=== PATIENT | male | born 1990 | race Caucasian/White ===

== ENCOUNTER 2022-08-13 11:07 | Outpatient (REF) | payer OTHER, SELFPAY ==
--- NOTE | ~2022-08-13 | US_ITS ---
Examination is included in a single combined report with ultrasound scrotum under accession number [id number].
--- NOTE | ~2022-08-13 | US_ITS ---
EXAMINATION: US SCROTUM CLINICAL INFORMATION: 32-year-old with testicular mass/swelling. COMPARISON: None TECHNIQUE: A sonogram of the scrotum was performed assessing bobo-scale appearance and color Doppler flow. Spectral Doppler analysis of the arterial and venous flow were performed in the testes bilaterally. FINDINGS: RIGHT: Right testicle measures 4.7 x 2.6 x 3.7 cm, volume 24 mL. There is a malignant appearing multifocal heterogeneous hypoechoic intratesticular mass with ill-defined margins and some associated coarse calcification. Overall combined dimensions are approximately 3.6 x 2.1 x 3.4 cm. There is increased vascularity in the right testis. No torsion. The epididymal head appears full and heterogeneous, possibly involved with tumor. No hydrocele. LEFT: Left testicle measures 4.2 x 2.0 x 3.5 cm, volume 15 mL. Left testis appears normal. The parenchyma is homogeneous and there is no intratesticular mass. Normal color and pulse Doppler flow. No torsion. No hydrocele. Epididymal head unremarkable. Urology consult recommended. Results communicated to Dr. Faith via secure text on 08/13/2022. US/US scrotum IMPRESSION: Right: -Malignant appearing large multifocal heterogeneous intratesticular mass with possible extension to the epididymal head. No hydrocele. 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 No torsion. Urology consult recommended. Left: -Normal left testis. No hydrocele. No torsion.
== END 2022-08-13 11:08 | disposition home or self-care (01) ==
LOC: HO.HMGCX 11:07
PROVIDERS: PCP Nurse Practitioner Family; Visit Provider Internal Medicine
DX: N50.89 Other specified disorders of the male genital organs (principal)
CPT/HCPCS: 76870; 93975

== ENCOUNTER → 2022-08-14 09:35 | Outpatient (BNVA) | payer OTHER, SELFPAY | PROVIDERS: PCP Nurse Practitioner Family; Visit Provider Nurse Practitioner Family | DX: N50.89 Other specified disorders of the male genital organs (principal) | CPT/HCPCS: 99202 ==

== ENCOUNTER 2022-08-14 11:42 | Outpatient (REF) | payer OTHER, SELFPAY ==
[2022-08-14 13:42] LABS: MANUAL DIFF FLAG NO
[2022-08-14 13:57] LABS: Basophils Percent Auto 0.6 % (0-2); Eosinophils Absolute Auto 0.1 X10*3/uL (0.0-0.4); Eosinophils Percent Auto 1.4 % (0-4); Hematocrit 49.9 % (42.0-52.0); Hemoglobin 16.6 g/dl (14.0-18.0); Imm Gran Abs Auto 0.01 X10*3/uL (0.00-0.03); Imm Gran Pct Auto 0.2 % (0.0-0.4); Lymphocytes Absolute Auto 2.1 X10*3/uL (1.2-4.9); Lymphocytes Percent Auto 33.2 % (20-40); Mean Corpuscular HGB Conc 33.3 g/dl (31.0-36.0); Mean Corpuscular Hemoglobin 29.4 pg (27.0-33.0); Mean Corpuscular Volume 88.3 fL (80.0-98.0); Mean Platelet Volume 9.6 fL (9.4-12.4); Monocytes Absolute Auto 0.5 X10*3/uL (0.1-1.2); Monocytes Percent Auto 7.6 % (2-11); Neutrophils Absolute Auto 3.7 x10*3/uL (2.0-8.3); Platelet Count 339 X10*3/uL (160-400); Red Blood Count 5.65 X10*6/uL (4.60-5.80); White Blood Count 6.5 X10*3/uL (4.8-10.8)
[2022-08-14 14:18] LABS: Alanine Aminotransferase 13 U/L (0-40); Albumin Level 4.4 g/dL (3.5-5.0); Alkaline Phosphatase 55 U/L (39-117); Aspartate Amino Transferase 17 U/L (5-37); Bilirubin Direct 0.2 mg/dL (0.0-0.5); Bilirubin Total 0.5 mg/dL (0.0-1.0); Blood Urea Nitrogen 15 mg/dL (9-16); Estimated Glomerular Filt Rate > 60; Lactate Dehydrogenase 295 U/L (118-273); Total Protein 7.3 g/dL (6.5-8.0)
[2022-08-15 23:05] LABS: HCG Tumor Marker 8 mIU/mL (<5)
[2022-08-19 14:18] LABS: Alpha Fetoprotein 5.7 ng/mL (<6.1)
== END 2022-08-14 11:43 | disposition home or self-care (01) ==
LOC: HO.10HDL 11:42
PROVIDERS: Visit Provider Nurse Practitioner Family
DX: C62.90 Malignant neoplasm of unspecified testis, unspecified whether descended or undescended (principal); N50.89 Other specified disorders of the male genital organs
CPT/HCPCS: 36415; 80076; 81511; 82105; 82565; 83615; 84520; 84702; 85025

== ENCOUNTER 2022-08-15 13:44 | Outpatient (REF) | payer OTHER, SELFPAY ==
--- NOTE | ~2022-08-15 | CT_ITS ---
EXAMINATION: CT ABDOMEN AND PELVIS WITH CONTRAST CLINICAL INFORMATION: Other specified disorders. COMPARISON: None TECHNIQUE: Multidetector volumetric images were obtained from the superior aspect of the liver through the pubic symphysis following administration 85 mL of Omnipaque 350 intravenous contrast. Sagittal and coronal reformatted images were obtained on the technologist's workstation. Oral contrast: No This CT examination was performed using dose optimization techniques as appropriate, variously including the following: *Automated exposure control *Adjustment of mA and/or kV according to patient size (this includes techniques or standardized protocols for targeted exams where dose is matched to indication/reason for exam; i.e. extremities or head) *Use of iterative reconstruction technique DLP: 719 mGy-cm FINDINGS: LUNG BASES: The visualized lung bases are unremarkable. LIVER, GALLBLADDER, AND BILIARY TREE: The liver is normal in size, shape, and attenuation. No focal hepatic lesion or biliary ductal dilatation is present. There are multiple echogenic gallstones without wall thickening. No pericholecystic fluid collection. PANCREAS: Unremarkable. SPLEEN: Unremarkable. ADRENAL GLANDS: Unremarkable. KIDNEYS AND URETERS: The kidneys are normal in size, shape, and attenuation. No hydronephrosis, hydroureter, or calculi seen. No perinephric stranding. BLADDER: Unremarkable. GASTROINTESTINAL TRACT: There is scattered stool, gas seen throughout the colon without distention. Oral contrast opacified small bowel loops are normal caliber. The appendix is normal caliber. No inflammatory process, free air or free fluid seen. ABDOMINAL WALL: No significant hernia is appreciated. LYMPH NODES: There are abnormal aortocaval and retroperitoneal lymph nodes largest pretracheal lymph node measures 2.3 x 2.8 cm. Aortocaval lymph node measures 1.5 x 1.4 cm. The rest visualized on axial image 38/3 and 35/3. No abnormal-sized mesenteric nodes seen. VASCULAR: Unremarkable. PELVIC VISCERA: No abnormality seen. Prominent bilateral inguinal canals are seen. Heterogeneous right testicular lesion is seen. OSSEOUS STRUCTURES: Unremarkable. CT/CT abdomen pelvis w IV con IMPRESSION: Cholelithiasis without wall thickening. Abnormal retroperitoneal and aortocaval lymph nodes. Mild constipation. Heterogeneous right testicular lesion. Fleischner guidelines were followed.
[2022-08-15] MEDS: Barium Sulfate Oral (Mocha) 450 ML ORAL.SUSP 900 ML PO (16:10)
[2022-08-15] MEDS: iohexoL 350 MG/ML 100 ML INFUS..BTL IV (16:11)
== END 2022-08-15 13:45 | disposition home or self-care (01) ==
LOC: HO.CT 13:44
PROVIDERS: PCP Nurse Practitioner Family; Visit Provider Nurse Practitioner Family
DX: N50.89 Other specified disorders of the male genital organs (principal)
CPT/HCPCS: 74177; Q9967

== ENCOUNTER 2022-08-19 05:49 | Day surgery (SDC) | payer OTHER, SELFPAY ==
[2022-08-19] VITALS (9 sets, daily range): BP systolic 117–146; BP diastolic 64–89; PULSE 56–74; RESP 14–16; TEMP 36.2–36.8; O2SAT 96–100; BMI 31.7
--- NOTE | 2022-08-19 08:42 | HO.ANESPROP2 ---
[facility] Active Problems Active Problems: All Active Problems (Updated 08/19/22 @ 06:21 by Kady Varela RN) Testicular lump (Acute) Testicular mass (Acute) Past Medical History Medical History (Updated 08/19/22 @ 06:21 by Kady Varela RN) Depression Family History Family history of problems with anesthesia: No Surgical History Surgical History (Updated 08/19/22 @ 06:14 by Kady Varela RN) No pertinent past surgical history History of Problems with Anesthesia: No Social History Social History Patient Tobacco Use Status: Former Tobacco user Quit Date: 10/2021 Use of substances other than those prescribed or required for medical reasons: No Are you DNR?: No Advance Directives: No Advance Directives Information Provided: Yes Meds Allergies Allergy/AdvReac Type Severity Reaction Status Date / Time No Known Allergies Allergy Verified 08/19/22 06:14 Home Medications Medication Instructions Recorded Confirmed Last Taken Type bupropion HCl 150 mg 24 hr tablet, 150 mg PO QAM 08/13/22 08/19/22 Unknown History extended release cholecalciferol (vitamin D3) 50 50 mcg PO DAILY 08/13/22 08/19/22 Unknown History mcg (2,000 unit) capsule multivitamin 1 tab PO DAILY 08/13/22 08/19/22 Unknown History Exam Exam Date and Time: August 19, 2022 0842 Height,Weight and Vital Signs: Height 5 ft 9 in Weight 97.522 kg Last Vital Signs Temp 98.2 F 08/19/22 06:33 Pulse 69 08/19/22 06:33 Resp 15 08/19/22 06:33 BP 143/80 H 08/19/22 06:33 Pulse Ox 100 08/19/22 06:33 O2 Del Method 08/19/22 06:33 Airway Mallampati Class: I TM Dist: >3cm Neck ROM: Full Heart: rr Lungs: cta Assessment and Plan Assessment Anesthesia Assessment: Anesthesia Plan Discussed Final Anesthetic Review Family History of Problems with Anesthesia: No History of Problems with Anesthesia: No NPO: Yes ASA Class: I Final Preanesthetic Review: No Changes in Pt Med Stat, Meds/Allgs Chart Reviewed, Consent Obtained/Reviewed and Anes Risks/Benef Reviewed Patient Risk: Low Procedure Risk: Intermediate Anesthetic Plan Anesthetic Plan: GA Disposition: Standard PACU
--- NOTE | 2022-08-19 09:15 | MHC.SHP ---
Pre-Procedural Eval Section A Date of Service: 08/19/22 The History & Physical has been completed within 30 days and I have reviewed it.: Yes Section B Chief Complaint: Other specified disorders of the male genital orga Allergies: Allergies Allergy/AdvReac Type Severity Reaction Status Date / Time No Known Allergies Allergy Verified 08/19/22 06:14 Plan I have reviewed the history and physical and performed a pertinent physical examination on my patient. No changes have occurred unless specified. Radical Orchiectomy, risks discussed including but not limited to infection, bleeding. Time Spent With Patient Time: Total time managing care of this patient today ____ minutes.
--- NOTE | 2022-08-19 09:18 | P.OP_ITS ---
Operative Note Operative Note Date of Service: 08/19/22 Narrative: PREOP DIAGNOSIS: Testicular mass POSTOP DIAGNOSIS: Testicular mass PROCEDURE: Radical orchiectomy Surgeon: Dr. Abigail Martinez Spar Machine Operator: Dr. Pepe Lord Indications: The patient is a 32 year old male who noted a mass on his testicle that was getting bigger, scrotal ultrasound noted heterogeneous changes concerning for malignancey. Details of procedure: The patient was brought into the operating room placed on the OR table in supine position. IV Ancef was given. General anesthesia was initiated. The patient was prepped and draped in the usual sterile fashion. Time-out was done per protocol. The pubic tubercle and the anterior superior iliac spine were identified. The pubic tubercle was marked, the external ring was palpated through the scrotum and the skin level was marked. An oblique incision was made with a 15 blade knife through the skin. Cautery was used to incise the subcutaneous tissue. The the fascia of the external oblique was identified. The external ring was palpated. The cord was dissected free with blunt dissection and cautery. A quarter-inch [place] drain was placed around the spermatic cord. The testicle was delivered into the wound. The gubernacular attachments were freed up from the tunica vaginalis. Once the testicle had been dissected free from the scrotum, attention was taken to dissect the cord up to the level of the inguinal ring. The vas deferens was identified and ligated with 2-0 silk. There was noted to be moderate fatty tissue along the cord which was dissected free from the cord vessels. A clamp was then placed around the cord/vessels and ligated with 2-0 silk x2. The cord and testicle were removed from the field to send to pathology in formalin. The wound was irrigated copiously with normal saline. Attention was taken to make sure there was good hemostasis. The fascia edges were identified and closed with 2-0 Vicryl in a running fashion. The subcu tissue was closed 2-0 Vicryl and the skin was closed with Monocryl. Steri-Strips and dressing were applied. Patient was brought of general and taken to recovery in stable condition. Complications: None Drains: none
[2022-08-19] MEDS: Ketorolac Tromethamine 30 MG/ML VIAL IVPUSH (09:29)
[2022-08-19] MEDS: Acetaminophen 1,000 MG/100 ML PIGGYBACK 400 MG IV (09:34)
[2022-08-19] MEDS: oxyCODONE HCl Immed Release 5 MG TABLET 10 MG PO (09:35)
== END 2022-08-19 11:06 | disposition home or self-care (01) ==
PROVIDERS: PCP Nurse Practitioner Family; Visit Provider Urology
PROC: (CPT 54530; principal; 2022-08-19 07:30)
DX: N50.89 Other specified disorders of the male genital organs (principal); F32.A Depression, unspecified; Z79.899 Other long term (current) drug therapy; Z87.891 Personal history of nicotine dependence
CPT/HCPCS: 54530; 88309; 88313; 88341; 88342; J0131; J0690; J1885; J2250; J2795; J3010

== ENCOUNTER → 2022-09-04 13:45 | Outpatient (BNVA) | payer OTHER, SELFPAY | PROVIDERS: PCP Nurse Practitioner Family; Visit Provider Urology | DX: C62.91 Malignant neoplasm of right testis, unspecified whether descended or undescended (principal) | CPT/HCPCS: 99212 ==

== ENCOUNTER → 2022-09-22 12:06 | Outpatient (BNV) | payer OTHER, SELFPAY | PROVIDERS: Visit Provider Internal Medicine | DX: C62.91 Malignant neoplasm of right testis, unspecified whether descended or undescended (principal) | CPT/HCPCS: 99205; 99212; 99213; 99214; 99215 ==

== ENCOUNTER 2022-10-01 07:41 | Outpatient (REF) | payer OTHER, SELFPAY ==
--- NOTE | ~2022-10-01 | CT_ITS ---
EXAMINATION: CT CHEST, ABDOMEN AND PELVIS WITH CONTRAST CLINICAL INFORMATION: Staging testicular cancer. COMPARISON: CT of the abdomen of 08/15/2022. TECHNIQUE: Multidetector volumetric imaging was performed from the thoracic inlet through the pubic symphysis following administration of oral and intravenous contrast of 85 mL of Omnipaque 350. Sagittal and coronal reformatted images were obtained on the technologist workstation. This CT examination was performed using dose optimization techniques as appropriate, variously including the following: *Automated exposure control *Adjustment of mA and/or kV according to patient size (this includes techniques or standardized protocols for targeted exams where dose is matched to indication/reason for exam; i.e. extremities or head) *Use of iterative reconstruction technique DLP: 191 and 544 mGy-cm. FINDINGS: CHEST: LUNGS: The central airways are patent. No bronchial wall thickening is appreciated. No bronchiectasis is seen. No confluent parenchymal disease. There is a 4 mm intrafissural lymph node within the right minor fissure on image [address] series 5. There are a few calcified granulomas seen within the right and left lower lobes. No suspicious lung nodules are identified. MEDIASTINUM: The visualized thyroid gland is unremarkable. Heart normal size. No coronary artery calcification. No pericardial effusion. No thoracic aortic aneurysm or dissection. No mediastinal or hilar lymphadenopathy is appreciated. Internal mammary vessels appear unremarkable without adjacent lymphadenopathy. PLEURA: There is no significant effusion. No pleural mass or thickening. CHEST WALL/AXILLA: Unremarkable. ABDOMEN/PELVIS: LIVER, GALLBLADDER, BILIARY TREE: The liver is normal in size, shape, and attenuation. No focal hepatic lesion or biliary ductal dilatation is present. There is cholelithiasis present without evidence of acute cholecystitis. PANCREAS: Unremarkable. No mass or peripancreatic inflammatory change. SPLEEN: Unremarkable. ADRENAL GLANDS: Unremarkable. KIDNEYS AND URETERS: The kidneys are normal in size, shape, and attenuation. No hydronephrosis or hydroureter or calculi seen. No perinephric stranding. BLADDER: Unremarkable. GASTROINTESTINAL TRACT: No dilated loops of large or small bowel are evident. No free air or free fluid is seen. No pericolonic inflammatory change. The appendix appears unremarkable. ABDOMINAL WALL: No significant hernia is demonstrated. Status post right inguinal surgery. LYMPH NODES: There is a 1 x 0.7 cm GE junction lymph node. There is a 1.7 x 1.6 cm precaval lymph node seen on image [address] series 3 (previously measured 2.4 x 2.3 cm in size on CT study of 08/15/2022). Just superior and contiguous with this is a 1.0 x 0.8 cm lymph node which previously measured approximately 1.3 x 1.3 cm in size. VASCULAR: Unremarkable. PELVIC VISCERA: No significant abnormality appreciated. OSSEOUS STRUCTURES: There are stable, nondestructive, sclerotic densities seen within the femoral heads and intratrochanteric region as well as humeral heads and a few other scattered elsewhere. These likely represent bone islands. CT/CT abdomen pelvis w IV con IMPRESSION: 1. No findings within the chest to suggest metastatic disease to the chest. 2. Improvement in precaval lymph nodes as described above. 3. Old granulomatous disease.
[2022-10-01] MEDS: iohexoL 350 MG/ML 100 ML INFUS..BTL 85 ML IV (10:11)
[2022-10-01] MEDS: Barium Sulfate Oral (Vanilla) 450 ML ORAL.SUSP 900 ML PO (10:12)
== END 2022-10-01 07:42 | disposition home or self-care (01) ==
LOC: HO.CT 07:41
PROVIDERS: PCP Nurse Practitioner Family; Visit Provider Internal Medicine
DX: C62.90 Malignant neoplasm of unspecified testis, unspecified whether descended or undescended (principal)
CPT/HCPCS: 71260; 74177; Q9967

== ENCOUNTER 2022-10-16 06:39 | Day surgery (SDC) | payer OTHER, SELFPAY ==
--- NOTE | ~2022-10-16 | IR_ITS ---
PROCEDURE: IR INSERTION OF TUNNEL CATHETER CLINICAL INFORMATION: Testicular cancer. COMPARISON: None. TECHNIQUE: Procedure and risks and benefits including bleeding, infection and pneumothorax were discussed with the patient and informed consent was obtained. All elements of maximal sterile barrier technique followed including use of cap, mask, sterile gown, sterile gloves, a sterile full body drape and hand hygiene. Also followed skin preparation with 2% chlorhexidine for cutaneous antisepsis, and sterile ultrasound preparation with sterile gel and probe cover when applicable. The right neck and upper chest were prepped and draped in the usual sterile fashion. The skin and soft tissues of the right lower neck were anesthetized with 1% lidocaine plain. A small incision was made. Using ultrasound guidance and a 5 [place] micropuncture system, right internal jugular vein access was obtained. Over a 0.018 wire, a 5 [place] dilator was positioned in the SVC. The skin and soft tissues of the right upper anterior chest were anesthetized with 1% lidocaine plain. A small incision was made. Using blunt dissection, subcutaneous pocket was created. A subcutaneous tunnel from the chest to the neck incision was anesthetized with 1% lidocaine plain. Using a tunneler, a 6.6 [place] single-lumen catheter was tunneled from the chest to the neck incision. The catheter was attached to the port. The port and catheter were flushed. The port was positioned in the subcutaneous pocket and secured using two 2-0 nonabsorbable sutures. A 0.035 guidewire was advanced through the 5 [place] dilator into the IVC. The 5 [place] dilator was exchanged for a 7 [place] peel-away sheath. Using bent wire technique, catheter length was estimated and the catheter was cut. Catheter length is 19 cm. The catheter was fed through the peel-away sheath. The neck incision was closed using a 4-0 absorbable subcuticular suture. The chest incision was closed using four 3-0 absorbable interrupted sutures followed by a running 4-0 absorbable subcuticular suture. The port was accessed. The port had good blood return, flushed easily and was instilled with 5 mL heparin 100 unit per mL solution. Real-time ultrasound guidance was used to document vein patency and for needle entry. A formal ultrasound picture was recorded. Fluoroscopy time 0.5 minutes. 1 saved fluoroscopic image. DAP 67 Gy-cm2. Conscious sedation was provided by a registered nurse under my direct supervision. There was 37 minutes of [id number] contact time. The patient received 2 mg of Versed, 100 mcg of fentanyl intravenously and Kefzol 2 g IV. FINDINGS: There is a right internal jugular Dignity Port-A-Cath with tip projecting over the cavoatrial junction. IR/IR cvc insert tunnel w prt/community mental health worker IMPRESSION: Right internal jugular 6.6 [place] single-lumen Dignity Port-A-Cath placement.
[2022-10-16 07:12] VITALS: BMI 30.8
[2022-10-16 07:21] LABS: MANUAL DIFF FLAG NO
[2022-10-16 07:23] LABS: Basophils Absolute Auto 0.1 X10*3/uL (0.0-0.2); Basophils Percent Auto 0.8 % (0-2); Eosinophils Absolute Auto 0.2 X10*3/uL (0.0-0.4); Eosinophils Percent Auto 3.6 % (0-4); Hematocrit 45.9 % (42.0-52.0); Hemoglobin 15.2 g/dl (14.0-18.0); Imm Gran Abs Auto 0.02 X10*3/uL (0.00-0.03); Imm Gran Pct Auto 0.3 % (0.0-0.4); Lymphocytes Absolute Auto 2.4 X10*3/uL (1.2-4.9); Lymphocytes Percent Auto 37.7 % (20-40); Mean Corpuscular HGB Conc 33.1 g/dl (31.0-36.0); Mean Corpuscular Hemoglobin 28.8 pg (27.0-33.0); Mean Corpuscular Volume 86.9 fL (80.0-98.0); Mean Platelet Volume 9.6 fL (9.4-12.4); Monocytes Absolute Auto 0.5 X10*3/uL (0.1-1.2); Monocytes Percent Auto 7.6 % (2-11); Neutrophils Absolute Auto 3.2 x10*3/uL (2.0-8.3); Platelet Count 278 X10*3/uL (160-400); Red Blood Count 5.28 X10*6/uL (4.60-5.80); Red Cell Distribution Width 13.1 % (11.0-16.0); White Blood Count 6.3 X10*3/uL (4.8-10.8)
[2022-10-16 07:28] LABS: INTERNATIONAL NORM RATIO 0.9 (0.9-1.1); Prothrombin Time 10.6 SEC (10.0-13.1)
[2022-10-16 07:31] LABS: Partial Thromboplastin Time 32.1 SEC (26.0-36.4)
[2022-10-16] MEDS: Lidocaine HCl 1 % MPF 5 ML VIAL 20 ML SUBCUT (10:09)
--- NOTE | 2022-10-16 10:15 | HO.RADPN ---
RADIOLOGY Narrative Narrative: CHERRIE grant lumen Dignity port placed. Tip in SVC.
[2022-10-16 10:18] VITALS: BP 128/82; PULSE 62; RESP 16; TEMP 36.3; O2SAT 98
[2022-10-16 10:33] VITALS: BP 121/83; PULSE 57; RESP 16; O2SAT 95
[2022-10-16 10:48] VITALS: BP 118/74; PULSE 62; RESP 16; O2SAT 97
[2022-10-16 11:15] VITALS: BP 119/72; PULSE 61; RESP 18; TEMP 36.4; O2SAT 97
== END 2022-10-16 11:29 | disposition home or self-care (01) ==
PROVIDERS: PCP Nurse Practitioner Family; Visit Provider Radiology Diagnostic Radiology
DX: Z45.2 Encounter for adjustment and management of vascular access device (principal); C62.91 Malignant neoplasm of right testis, unspecified whether descended or undescended; F32.A Depression, unspecified; Z79.899 Other long term (current) drug therapy; Z90.79 Acquired absence of other genital organ(s); Z87.891 Personal history of nicotine dependence
CPT/HCPCS: 36415; 36561; 85025; 85610; 85730; 99152; 99153; C1769; C1788; J0690; J1642; J2250; J3010

== ENCOUNTER 2022-10-16 13:46 | Outpatient (REF) | payer OTHER, SELFPAY ==
--- NOTE | 2022-10-16 | PFT_ITS ---
FLOWS: 1. FEV1 90% of predicted at 3.89 L. 2. FVC 83% of predicted at 4.43 L. 3. FEV1 to FVC ratio 0.88. 4. No bronchodilator response. LUNG VOLUMES: 1. Total lung capacity 79% of predicted at 5.36 L. 2. Residual volume 64% of predicted at 1.03 L. 3. Slow vital capacity 84% of predicted at 4.32 L. 4. Expiratory reserve volume 31% of predicted at 0.53 L. 5. Diffusion capacity is normal. IMPRESSION: Mild restrictive ventilatory defect with no bronchodilator response. Decreased expiratory reserve volume suggests extrathoracic restriction likely secondary to abdominal obesity. Leon Tello MD AP/MODL / [id number]
== END 2022-10-16 13:47 | disposition home or self-care (01) ==
LOC: HO.RESP 13:46
PROVIDERS: PCP Nurse Practitioner Family; Visit Provider Internal Medicine
DX: C62.90 Malignant neoplasm of unspecified testis, unspecified whether descended or undescended (principal)
CPT/HCPCS: 94060; 94727; 94729

== ENCOUNTER 2022-11-24 13:58 | Outpatient (REF) | payer OTHER, SELFPAY ==
--- NOTE | ~2022-11-24 | FL_ITS ---
EXAMINATION: XR FLUOROSCOPY CLINICAL INFORMATION: Port check COMPARISON: None available. TECHNIQUE: Following explaining the contrast injection fluoroscopy procedure, benefits and risk, a written consent was obtained. Patient was placed supine on fluoroscopy table and the right port was accessed and 10 mL of contrast injected and fluoroscopy images were obtained. Postprocedure the sutures removed. Patient was then sent to pathology for further discussion with the technologist. FINDINGS: On several images obtained during fluoroscopy the port catheter is intact with its tip terminating in the mid SVC. There is there is a small filling defect seen along the tip and right aspect of the catheter suspicious for fibrin. The catheter is however patent. FLUOROSCOPY TIME: 0.3 minutes DOSE AREA PRODUCT: 3.365 uGy-m2 (microgray-meter squared) FL/FL fluoroscopy <1hr IMPRESSION: There is a small fibrin deposit at the tip of the catheter especially lateral aspect. The catheter however is patent but no blood could be withdrawn. The results were immediately conveyed to Dr. Sotelo after the exam
== END 2022-11-24 13:59 | disposition home or self-care (01) ==
LOC: HO.XRAY 13:58
PROVIDERS: Visit Provider Internal Medicine Medical Oncology
DX: N50.89 Other specified disorders of the male genital organs (principal); C62.90 Malignant neoplasm of unspecified testis, unspecified whether descended or undescended
CPT/HCPCS: 76000

== ENCOUNTER 2023-01-08 13:06 | Outpatient (REF) | payer OTHER, SELFPAY ==
--- NOTE | ~2023-01-08 | CT_ITS ---
EXAMINATION: CT CHEST WITH IV CONTRAST CT ABDOMEN AND PELVIS WITH IV CONTRAST CLINICAL INDICATION: Testicular cancer nonseminoma. Follow-up lymphadenopathy. COMPARISON: CT of chest, abdomen and pelvis with contrast 10/01/[address] abdomen and pelvis 08/15/2022. TECHNIQUE: 5 mm thin axial and reformatted 3 mm thin sagittal and coronal images of chest, abdomen and pelvis were obtained following IV 85 mL Omnipaque 350. No oral contrast given. This CT examination was performed using dose optimization technique as appropriate, variously including the following: Automated exposure control Adjustment of MA and/or KV according to patient size(this includes techniques or standardized protocols for targeted exams where dose is matched to indication/reason for exam; extremities or head. Use of iterative reconstruction techniques. FINDINGS: CHEST: Lungs:: The lungs are well-expanded and clear of acute pneumonic process. Again visualized is a right minor fissure nodule likely intrafisssural lymph node measuring 4 mm on axial image 31/4. It is stable. No additional nodules visualized. No mass or consolidation. Punctate calcifications measuring 1-2 mm seen in the right upper and right lower lobe likely calcified granulomas. Mediastinum: The thyroid lobes are symmetric and normal. The central trachea and the bronchi widely patent. Heart size and the great vessels are normal caliber. There are no coronary artery calcifications present. No pericardial effusion. No abnormal size mediastinal or hilar lymph nodes. Pleura: There is no pleural effusion, thickening or calcification. Axilla: No abnormal size axillary lymph nodes seen. There is a right chest wall port with its tip in distal SVC. Osseous Structures: No aggressive lytic or sclerotic process seen. ABDOMEN: Liver, ducts and gallbladder: The liver is homogeneous in density, normal size and contour. No focal lesion or intrahepatic ductal dilatation seen. There are multiple radiolucent gallstones without wall thickening. CBD is normal caliber. Pancreas: Unremarkable. Spleen: Unremarkable. Adrenal glands: Unremarkable. Kidneys and ureters: Both kidneys are normal size, shape and position. No focal lesion, radiopaque calculi or hydronephrosis. GI tract: There is scattered stool and gas seen in the colon without any significant distention. The small bowel loops are normal caliber. The stomach is nondistended. Appendix is normal caliber. Lymphovascular Structures: Previously seen preaortic lymph nodes have totally resolved. There are no new lymph nodes or mass in the retroperitoneum. The abdominal aorta is normal caliber. Abdominal Wall: Unremarkable. PELVIS: The urinary bladder is partially distended and appears unremarkable. The prostate gland is normal size. No abnormal pelvic or inguinal lymph nodes seen. Osseous Structures: No aggressive lytic or sclerotic process seen. CT/CT abdomen pelvis w IV con IMPRESSION: 1. Stable right minor fissure nodule likely intrafissural lymph node. No additional lung nodules seen. 2. No abnormal mediastinal or axillary lymphadenopathy. 3. Previously seen retroperitoneal lymph nodes have totally resolved. There are no new lymph nodes seen in the abdomen or pelvis. 4. Radiolucent gallstones are stable. 5. Mild constipation.
== END 2023-01-08 13:07 | disposition home or self-care (01) ==
LOC: HO.CT 13:06
PROVIDERS: PCP Nurse Practitioner Family; Visit Provider Internal Medicine
DX: C62.90 Malignant neoplasm of unspecified testis, unspecified whether descended or undescended (principal)
CPT/HCPCS: 71260; 74177

== ENCOUNTER 2023-07-08 08:08 | Outpatient (REF) | payer OTHER, SELFPAY ==
--- NOTE | ~2023-07-08 | CT_ITS ---
EXAMINATION: CT ABDOMEN AND PELVIS WITH CONTRAST CLINICAL INFORMATION: History of testicular cancer. COMPARISON: 01/08/2023 TECHNIQUE: Multidetector volumetric images were obtained from the superior aspect of the liver through the pubic symphysis following administration 85 mL of Omnipaque 350 intravenous contrast. Sagittal and coronal reformatted images were obtained on the technologist's workstation. Oral contrast: No This CT examination was performed using dose optimization techniques as appropriate, variously including the following: *Automated exposure control *Adjustment of mA and/or kV according to patient size (this includes techniques or standardized protocols for targeted exams where dose is matched to indication/reason for exam; i.e. extremities or head) *Use of iterative reconstruction technique DLP: 680 mGy-cm FINDINGS: LUNG BASES: The visualized lung bases are unremarkable. LIVER, GALLBLADDER, AND BILIARY TREE: The liver is normal in size, shape, and attenuation. No focal hepatic lesion or biliary ductal dilatation is present. Gallstones. PANCREAS: Unremarkable. SPLEEN: Unremarkable. ADRENAL GLANDS: Unremarkable. KIDNEYS AND URETERS: The kidneys are symmetric in size and enhancement. No hydronephrosis. No perinephric stranding. BLADDER: Underdistended. GASTROINTESTINAL TRACT: Small and large bowel loops are of normal caliber. No small bowel obstruction. Appendix is within normal limits. ABDOMINAL WALL: Fat-containing left inguinal hernia. LYMPH NODES: No bulky abdominal or pelvic lymphadenopathy. VASCULAR: Normal caliber abdominal aorta. PELVIC VISCERA: Unremarkable. OSSEOUS STRUCTURES: No destructive bone lesions. CT/CT abdomen pelvis w IV con IMPRESSION: No evidence of new disease in the abdomen or pelvis.
[2023-07-08] MEDS: iohexoL 350 MG/ML 100 ML INFUS..BTL IV (08:42)
== END 2023-07-08 08:09 | disposition home or self-care (01) ==
LOC: HO.CT 08:08
PROVIDERS: PCP Nurse Practitioner Family; Visit Provider Internal Medicine
DX: C62.90 Malignant neoplasm of unspecified testis, unspecified whether descended or undescended (principal)
CPT/HCPCS: 74177; Q9967

== ENCOUNTER 2023-09-15 08:39 | Day surgery (SDC) | payer OTHER, SELFPAY ==
--- NOTE | ~2023-09-15 | IR_ITS ---
Port removal History: Patient no longer requires access for chemotherapy. Referring physicians request removal. Procedure: The risks and benefits were discussed the patient and the consent was signed. The right anterior chest was prepped and draped in routine sterile fashion. The skin was anesthetized with 1% lidocaine. An incision was made over the previous scar. Utilizing blunt dissection, the port was removed from the chest with the catheter intact. The pocket was irrigated with 50 mL of normal saline. The port pocket was closed with interrupted 3-0 Vicryl sutures in the deep layer and surgical glue to close the skin. The patient tolerated the procedure well. A sterile dressing was applied. This procedure was performed by Arturo Baeza PA-C, and supervised by Dr. Buchanan. IR/IR cvc remove tunnel w prt/rotor plate washer Impression: Right port removal
[2023-09-15 09:07] VITALS: BMI 35.8
[2023-09-15 11:30] VITALS: BP 146/89; PULSE 63; RESP 18; TEMP 36.4; O2SAT 97
[2023-09-15 11:45] VITALS: BP 126/87; PULSE 64; RESP 16; TEMP 36.3; O2SAT 97
--- NOTE | 2023-10-08 11:52 | PC.NURSE ---
10/08/2023 chart review for QA
== END 2023-09-15 12:11 | disposition home or self-care (01) ==
PROVIDERS: Radiology Vascular & Interventional Radiology; PCP Nurse Practitioner Family; Visit Provider Internal Medicine
PROC: (CPT 36590; principal; 2023-09-15 10:30)
DX: Z45.2 Encounter for adjustment and management of vascular access device (principal); C62.90 Malignant neoplasm of unspecified testis, unspecified whether descended or undescended; F32.A Depression, unspecified; Z90.79 Acquired absence of other genital organ(s); Z79.899 Other long term (current) drug therapy
CPT/HCPCS: 36590; J2310; J3010

== ENCOUNTER → 2023-09-15 10:22 | Outpatient (BNV) | payer OTHER, SELFPAY | PROVIDERS: PCP Nurse Practitioner Family; Visit Provider Radiology Vascular & Interventional Radiology | DX: Z95.828 Presence of other vascular implants and grafts (principal) | CPT/HCPCS: 36590 ==

== ENCOUNTER 2023-11-05 14:07 | Outpatient (REF) | payer OTHER, SELFPAY ==
--- NOTE | ~2023-11-05 | CT_ITS ---
EXAMINATION: CT ABDOMEN AND PELVIS WITH CONTRAST CLINICAL INFORMATION: Surveillance for testicular cancer. COMPARISON: None available. TECHNIQUE: Multidetector volumetric images were obtained from the superior aspect of the liver through the pubic symphysis following administration 85 mL of Omnipaque 350 intravenous contrast. Sagittal and coronal reformatted images were obtained on the technologist's workstation. Oral contrast: No This CT examination was performed using dose optimization techniques as appropriate, variously including the following: *Automated exposure control *Adjustment of mA and/or kV according to patient size (this includes techniques or standardized protocols for targeted exams where dose is matched to indication/reason for exam; i.e. extremities or head) *Use of iterative reconstruction technique DLP: 895 mGy-cm FINDINGS: LUNG BASES: The visualized lung bases are unremarkable. LIVER, GALLBLADDER, AND BILIARY TREE: The liver is normal in size, shape, and attenuation. No focal hepatic lesion or biliary ductal dilatation is present. There are multiple radiolucent gallstones without wall thickening or pericholecystic fluid collection. PANCREAS: Unremarkable. SPLEEN: Unremarkable. ADRENAL GLANDS: Unremarkable. KIDNEYS AND URETERS: The kidneys are normal in size, shape, and attenuation. No hydronephrosis, hydroureter, or calculi seen. No perinephric stranding. BLADDER: Unremarkable. GASTROINTESTINAL TRACT: There is scattered stool and gas seen throughout the colon without significant distention. The small bowel loops are normal caliber. Appendix is normal caliber. No free air or free fluid seen. ABDOMINAL WALL: No significant hernia is appreciated. LYMPH NODES: No abnormal size retroperitoneal or pelvic lymph nodes visualized.. VASCULAR: Unremarkable. PELVIC VISCERA: Unremarkable. OSSEOUS STRUCTURES: No aggressive lytic or sclerotic process seen. CT/CT abdomen pelvis w IV con IMPRESSION: 1. No acute intra-abdominal process seen. 2. Cholelithiasis without wall thickening. Fleischner guidelines were followed.
[2023-11-05] MEDS: iohexoL 350 MG/ML 100 ML INFUS..BTL IV (15:06)
== END 2023-11-05 14:08 | disposition home or self-care (01) ==
LOC: HO.CT 14:07
PROVIDERS: PCP Nurse Practitioner Family; Visit Provider Internal Medicine
DX: C82.90 Follicular lymphoma, unspecified, unspecified site (principal)
CPT/HCPCS: 74177; Q9967

== ENCOUNTER 2024-06-14 09:55 | Outpatient (AMB) | payer OTHER, SELFPAY ==
--- NOTE | 2024-06-14 10:09 | MHC.PC.OV ---
Intake Visit Reasons: est/jumping heart beat? no chest pain Allergies No Known Allergies Allergy (Verified 09/02/23 09:32) PFSH Medical History (Updated 09/15/23 @ 09:16 by Evie Morse, RN) History of testicular cancer Port-A-Cath in place Depression Surgical History (Updated 09/15/23 @ 09:16 by Evie Morse RN) History of testicular surgery History of removal of Port-a-Cath Family History Maternal Grandmother Rectal cancer Social History Household Members: None Housing: Apartment Do you presently have visiting nurse or other home services: No Patient Tobacco Use Status: Former Tobacco user service: No Current occupational status: employed Physical exam (Primary Care) Tobacco/Smoking Status: Tobacco use Status Patient Tobacco Use Status Former Tobacco user 09/15/23 12:01 Coding
--- NOTE | 2024-06-14 10:13 | AM.OFFWIN_ITS ---
Intake Vital Signs 06/14/24 10:14 06/14/24 10:25 Height 5 ft 9 in Weight 247 lb 8 oz BMI 36.5 BP 154/102 H 152/100 H Blood Pressure Location Rt brachial Rt brachial Position Sitting Sitting Pulse 68 Pulse Source Pulse Oximeter Temp 98.4 F Intake Visit Reasons: est/jumping heart beat? no chest pain Intake Note: Heart palpitations. Symptoms started on Thursday and Thursday, couple episodes. More frequently today. Throat tightness. Patient Tobacco Use Status: Former Tobacco user Allergies No Known Allergies Allergy (Verified 06/14/24 10:12) Do you need a note to return to daycare/school/sports/work: No HPI HPI Comments History of Present Illness Details Thomas is a 32 year old male with a past medical history of testicular cancer presenting for irregular heart beat/heart pounding Patient reports a 2 day history of intermittent sensations of a discomfort in the lower mid to left chest.No chest pain. Comes on suddenly, feels like ? heart is pounding & going fast. Feels like it is skipping, maybe-its hard for him to describe. lasts for 20 minutes to an hour. Does not feel like prior GERD, denies reflux. Has been trying to cut back caffeine lately (preceding these symptoms). Says not dehydrated, stressed. No sick symptoms. 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 NAD EYES: EOMI. Anicteric. HENT: Moist mucous membranes. No scleral icterus. No cervical lymphadenopathy. LUNGS: Clear to auscultation bilaterally. CARDIOVASCULAR: Regular rate and rhythm. No murmur. No JVD. ABDOMEN: Soft, non-tender +bs EXTREMITIES: No edema. Non-tender. SKIN: No rashes or lesions. Warm. NEUROLOGIC: No focal neurological deficits. CN II-XII grossly intact PSYCHIATRIC: Cooperative. Appropriate mood and affect PHYSICAL EXAM: GENERAL: Alert and oriented x 3. NAD EYES: EOMI. Anicteric. HENT: Moist mucous membranes. No scleral icterus. No cervical lymphadenopathy. LUNGS: Clear to auscultation bilaterally. CARDIOVASCULAR: Regular rate and rhythm. No murmur. No JVD. ABDOMEN: Soft, non-tender +bs EXTREMITIES: No edema. Non-tender. SKIN: No rashes or lesions. Warm. NEUROLOGIC: No focal neurological deficits. CN II-XII grossly intact PSYCHIATRIC: Cooperative. Appropriate mood and affect [facility] Medical History (Updated 06/14/24 @ 10:38 by Sunita Grover MD) History of testicular cancer Port-A-Cath in place Depression Surgical History (Updated 09/15/23 @ 09:16 by Evie Morse RN) History of testicular surgery History of removal of Port-a-Cath Family History Maternal Grandmother Rectal cancer Social History Household Members: None Housing: Apartment Do you presently have visiting nurse or other home services: No Patient Tobacco Use Status: Former Tobacco user service: No Current occupational status: employed Physical Exam Vital Signs: Last Vital Signs Temp 98.4 F 06/14/24 10:14 Pulse 68 06/14/24 10:14 BP 152/100 H 06/14/24 10:25 BMI result Body Mass Index 36.5 Assessment & Plan Assessment & Plan (1) Palpitations: Code(s): R00.2 - Palpitations Plan: Palpitations/Heart pounding EKG is reassuring. CTs without mention of hiatal hernia etc Blood pressure is quite high. Will start low dose med. Patient will buy cuff Check labs, heart monitor ordered. Call with persistent or worsening symptoms Orders: Orders TSH reflex Free T4 06/14/24 R00.2 - Palpitations Comprehensive Met. Panel 06/14/24 R00.2 - Palpitations Magnesium 06/14/24 R00.2 - Palpitations ECG holter monitor 48 hour 06/14/24 R00.2 - Palpitations, R03.0 - Elevated blood-pressure reading, without diagnosis of hypertension Medications: New lisinopril 5 mg PO DAILY 90 tabs 3RF Coding Level of Care Code Est Pt Level 4 (29576) Diagnoses Palpitations R00.2
[2024-06-14 10:14] VITALS: BP 154/102; PULSE 68; TEMP 36.9; BMI 36.5
[2024-06-14 10:25] VITALS: BP 152/100
== END 2024-06-14 10:46 | disposition home or self-care (01) ==
LOC: HO.HMCWIW 09:55
PROVIDERS: PCP Nurse Practitioner Family; Visit Provider Internal Medicine
DX: R00.2 Palpitations (principal)

== ENCOUNTER → 2024-06-14 09:55 | Outpatient (BNVA) | payer OTHER, SELFPAY | PROVIDERS: PCP Nurse Practitioner Family; Visit Provider Internal Medicine | DX: R00.2 Palpitations (principal) | CPT/HCPCS: 99212 ==

== ENCOUNTER 2024-06-14 10:48 | Outpatient (REF) | payer OTHER, SELFPAY ==
[2024-06-14 14:58] LABS: Alanine Aminotransferase 38 U/L (0-40); Albumin Level 4.6 g/dL (3.5-5.0); Alkaline Phosphatase 46 U/L (39-117); Anion Gap 11 (12-20); Aspartate Amino Transferase 36 U/L (5-37); Bilirubin Total 0.5 mg/dL (0.0-1.0); Blood Urea Nitrogen 13 mg/dL (9-16); Carbon Dioxide 27 mmol/L (22-29); Chloride 107 mmol/L (96-108); Estimated Glomerular Filt Rate > 60; Glucose Random 86 mg/dL (60-115); Magnesium 2.2 mg/dL (1.6-2.6); Potassium 4.3 mmol/L (3.3-5.1); Sodium 141 mmol/L (135-145); Total Protein 7.6 g/dL (6.5-8.0)
[2024-06-14 15:05] LABS: TSH reflex Free T4 1.47 uIU/mL (0.32-4.0)
== END 2024-06-14 10:49 | disposition home or self-care (01) ==
LOC: HO.WFDLDS 10:48
PROVIDERS: Visit Provider Internal Medicine
DX: R00.2 Palpitations (principal)
CPT/HCPCS: 36415; 80053; 83735; 84443

== ENCOUNTER → 2024-07-05 08:31 | Outpatient (REF) | payer OTHER, SELFPAY ==
--- NOTE | 2024-07-05 08:35 | HM_ITS ---
* Total monitoring time 2 days. * Underlying rhythm is sinus with an average rate of 71/Min. * Rare supraventricular ectopy. * Rare ventricular ectopy. * No significant pauses or high-grade AV blocks. * Patient marker used in association with sinus rhythm and supraventricular ectopy. * Skipped beat in patient diary associated with supraventricular ectopy. MTDD
== END ==
LOC: HO.CARD 08:31
PROVIDERS: PCP Nurse Practitioner Family; Visit Provider Internal Medicine
DX: R00.2 Palpitations (principal); R03.0 Elevated blood-pressure reading, without diagnosis of hypertension
CPT/HCPCS: 93225

== ENCOUNTER → 2024-07-05 08:35 | Outpatient (BNV) | payer OTHER, SELFPAY | PROVIDERS: PCP Nurse Practitioner Family; Visit Provider Internal Medicine | DX: I47.10 Supraventricular tachycardia, unspecified (principal) | CPT/HCPCS: 93227 ==